=== PATIENT | male | born 1950 | race Two or more races ===

== ENCOUNTER 2020-11-21 13:12 | Emergency (ER) | payer OTHER ==
[2020-11-21 13:36] VITALS: BP 122/80; PULSE 78; BMI 27.4
[2020-11-21 13:40] VITALS: TEMP 98.1
[2020-11-21] MEDS ORDERED: DIPHTH,PERTUSS(ACELL),TET 0.5 ML DISP.SYRIN IM ONE ×2 (14:24→14:26)
== END 2020-11-21 14:52 | disposition home or self-care (01) ==
LOC: JERFT 13:12
PROC: 0HQDXZZ Repair Right Lower Arm Skin, External Approach (ICD-10-PCS; principal; 2020-11-21)
PROC: 3E0234Z Introduction of Serum, Toxoid and Vaccine into Muscle, Percutaneous Approach (ICD-10-PCS; principal; 2020-11-21)
DX: S51.811A Laceration without foreign body of right forearm, initial encounter (principal); W25.XXXA Contact with sharp glass, initial encounter
CPT/HCPCS: 90715; 99282-25

== ENCOUNTER 2020-12-05 08:45 | Emergency (ER) | payer OTHER ==
[2020-12-05 08:56] VITALS: BP 170/90; PULSE 85; TEMP 98.1; BMI 27.4
== END 2020-12-05 09:38 | disposition home or self-care (01) ==
LOC: JER 08:45
DX: Z48.02 Encounter for removal of sutures (principal)
CPT/HCPCS: 99281-25